=== PATIENT | male | born 1985 | race Caucasian/White ===

== ENCOUNTER 2020-08-20 14:48 | Emergency (ER) | payer MEDICARE, MEDICAID, SELFPAY ==
[2020-08-20 14:50] VITALS: BP 150/86; PULSE 107; RESP 19; TEMP 36.6; O2SAT 100; BMI 20.3
--- NOTE | 2020-08-20 15:04 | HMH.EDGENADL ---
ED Disposition Clinical Impression: Cutaneous abscess Qualifiers: Site of cutaneous abscess: extremity Site of cutaneous abscess of extremity: axilla Laterality: right Qualified Code(s): L02.411 - Cutaneous abscess of right axilla Disposition: Home, Self-Care Condition on Discharge: Good Instructions: DI for Skin Abscess, DI for Incision and Drainage of a Skin Abscess Additional Instructions: Bactrim as prescribed. Ibuprofen as needed for pain. Additional instructions for ABSCESS: Day one and two: Remove the bandage and shower the area, leaving the packing in place. Gently blot dry. Apply a bandage. Day three: Follow-up with primary care physician, clinic, or Urgent Treatment Center for packing removal and culture results. [facility] urgent treatment center is open 9 AM to 9 PM 7 days a week. Return to the emergency department if increasing pain, swelling, redness, red streaks or fever greater than 101 degrees. Prescriptions: Ibuprofen [Ibuprofen 800mg Tab] 800 mg PO Q8HP PRN #15 tab PRN Reason: Moderate Pain Transmission Status: Pending to [facility] # [id number] Sulfamethoxazole/Trimethoprim [Bactrim DS tablet] 1 each PO BID #20 tab Transmission Status: Pending to [facility] # [id number] Referrals: Ced Ocasio [Primary Care Provider] - - Critical Care Critical Care Time: No Attestation: On , the high probability of a clinically significant, sudden or life threatening deterioration of the following system(s) required my full and direct attention, intervention and personal management. The time I documented below is in addition to time spent performing reported procedures but includes the following listed in this critical care notation. Medical Decision Making - Saad Inquiry Pt receiving controlled substance: No Vital Signs: 08/20/20 14:50 Temperature 97.8 F Temperature Source Oral Pulse Rate [Left Radial] 107 H Respiratory Rate 19 Blood Pressure [Right Arm] 150/86 H Blood Pressure Mean [Right Arm] 107 Blood Pressure Source [Right Arm] Automatic Cuff Blood Pressure Position [Right Arm] Sitting 02 Sat by Pulse Oximetry 100 Oxygen Delivery Method Room Air Orders (Tests/Meds): ED MEDICATIONS Discontinued Medications Generic Name Dose Route Start Last Admin Trade Name Freq PRN Reason Stop Dose Admin Lidocaine/Epinephrine 10 ml 08/20/20 15:07 08/20/20 15:10 Lidocaine 2% W/Epi 1:100,000 20ml Vial IJ 08/20/20 15:08 1 mg ONCE ONE Administration ORDERS Category Date Time Status Wound Culture and Gram Stain Stat Micro 08/20/20 15:07 Ordered General Adult HPI - General Chief complaint: Skin/Abscess/Foreign Body Stated complaint: Possible boil under R arm Time Seen by Provider: 08/20/20 15:04 Mode of Arrival: Ambulatory Limitations: No Limitations Description of Symptoms (Recalled from ER Triage Doc. by RN): c/o boil like place under his right underarm that started swelling about 3 days ago. Area has become more sore and tender today. He feels that it is ready to bust - History of Present Illness HPI narrative: Possible boil in the right axilla for about 3 days. No drainage noted. No prior history of abscesses, no exposures known. No fever. - Related Data Previous Rx's Medication Instructions Recorded Ibuprofen [Ibuprofen 800mg Tab] 800 mg PO Q8HP PRN #15 tab 08/20/20 Sulfamethoxazole/Trimethoprim 1 each PO BID #20 tab 08/20/20 [Bactrim DS tablet] Allergies Allergy/AdvReac Type Severity Reaction Status Date / Time No Known Allergies Allergy Verified 08/20/20 15:04 [facility] History - Hepatitis A Screen Drug use history?: Yes High risk sexual behaviors?: No History of sexually transmitted infection?: No Currently employed?: No Childcare worker?: No Do you have indoor plumbing?: Yes Do you have electricity?: Yes Attestation statement:: This patient has been screened for Hepatitis A risk factors. I have reviewed the
[2020-08-20 15:36] VITALS: BP 135/70; PULSE 100; RESP 20; TEMP 36.6; O2SAT 100
== END 2020-08-20 15:40 | disposition home or self-care (01) ==
PROVIDERS: Emergency Provider Emergency Medicine; PCP Pediatrics
DX: L02.411 Cutaneous abscess of right axilla (principal)
CPT/HCPCS: 10060; 87070; 87077; 87186; 87205; 99283

== ENCOUNTER 2024-03-26 23:54 | Emergency (ER) | payer BC, SELFPAY ==
[2024-03-26 23:56] VITALS: BP 130/95; PULSE 71; RESP 15; TEMP 36.9; O2SAT 98; BMI 24.4
--- NOTE | 2024-03-27 00:18 | HMH.EDGENADL ---
Discharge Plan Disposition Patient Disposition: Home, Self-Care Condition: Good Prescriptions Prescriptions: New amoxicillin-pot clavulanate 875-125 mg tablet 1 tab PO BID 7 Days Qty: 14 0RF No Action ibuprofen 800 MG tablet 800 mg PO Q8HP PRN (Reason: Moderate Pain) Qty: 15 0RF sulfamethoxazole-trimethoprim 1 EACH tablet 1 each PO BID Qty: 20 0RF Referrals Follow up/Referrals: Provider,Referral, MD [Primary Care Provider] - See instructions Activity Restrictions/Add. Instructions Additional Instructions/Restrictions: You were evaluated in the ER. You are appropriate for discharge at this time. Take the prescribed antibiotics as directed, do not skip doses, do not stop taking them early. Call your dentist to make an appointment immediately to have your bad teeth removed in order to eliminate the infection. Return to the ER with any new or worsening symptoms including but not limited to fevers, difficulty opening the mouth, difficulty swallowing, or pain under the jaw. Clinical Impressions Clinical Impression: Dental infection Discharge ED Provider: Ratna Ruby Adult HPI General Chief complaint: Dental/Oral Stated complaint: absess tooth, swollen jaw Time Seen by Provider: 03/27/24 00:02 Mode of Arrival: Ambulatory Source of Information: Patient Limitations: No Limitations Description of Symptoms (Recalled from ER Triage Doc. by RN): patient ambualtory to ED with complaints of left lower jaw abscess with increased swelling today. He reports that he has seen an emergency dentist for current issue and was placed on abx. He had an appointment to get tooth removed at same place but was unable to keep appt . Denies fever, or difficulty swallowing History of Present Illness HPI narrative: 39 presents to the ER with concerns of left jaw swelling. Reportedly he saw an emergency dentist for this issue and was placed on amoxicillin. He had appointment to have the tooth extracted but was unable to make that appointment. He has been off antibiotics for more than a week and is having increasing swelling. He states he does not have significant pain, he denies fever, difficulty breathing, difficulty swallowing. No other daily medications, no known drug allergies. Related Data Previous Rx's Medication Instructions Recorded ibuprofen 800 mg tablet 800 mg PO Q8HP PRN Moderate Pain 08/20/20 #15 tabs sulfamethoxazole 800 1 each PO BID #20 tabs 08/20/20 mg-trimethoprim 160 mg tablet amoxicillin 875 mg-potassium 1 tab PO BID 7 days #14 tabs 03/27/24 clavulanate 125 mg tablet Allergies Allergy/AdvReac Type Severity Reaction Status Date / Time No Known Allergies Allergy Verified 08/20/20 15:04 [facility] Disclaimer: The information contained in this section may have been updated after the patient was seen, as this information can be updated by other users. Social History Smoking Status: Current every day smoker tobacco type: cigarettes packs per day: 1 alcohol intake: former substance use type: former substance user, heroin, opiates and methamphetamine current occupational status: unemployed Travel in the last 8 weeks: None ROS Obtained: Yes All systems reviewed & no additional complaints except as documented Constitutional Constitutional: Denies chills, Denies fever(s), Denies headache(s) and Denies weakness Eyes Eyes: Denies change in vision ENT Ears, Nose, Mouth, and Throat: Reports dental pain, Denies dizziness, Denies headache(s), Denies nasal congestion, Denies sore throat, Denies throat swelling and Reports other (Facial swelling) Cardiovascular Cardiovascular: Denies chest pain, Denies dyspnea and Denies leg edema Respiratory Respiratory: Denies cough and Denies dyspnea Gastrointestinal Gastrointestingal: Denies constipation, diarrhea, nausea or vomiting Genitourinary Male Genitourinary: Denies difficulty urinating Musculoskeletal Musculoskeletal: Denies arthralgias, Denies myalgias, Denies numbness and Denies tingling Integumentary/Breasts Skin/Breast: Denies change in pigmentation Neurologic Neurologic: Denies dizziness, Denies headache(s), Denies numbness, Denies tingling and Denies weakness Allergic/Immunologic Allergic/Immunologic: Denies throat swelling Physical Exam General General appearance: alert and in no apparent distress Head Head exam: atraumatic and normocephalic Eye Eye exam: Present PERRL and EOMI ENT ENT exam: Present mucous membranes moist Expanded ENT Exam Mouth exam: Present tongue normal; Absent trismus Teeth exam: Present dental caries, fractured tooth # and other (Multiple dental caries, fractured teeth #18, 19, 20, swelling along the gingiva and cheek along the same teeth, no obvious abscess) Comment: No submandibular swelling, no trismus, no tenderness in the submandibular space, no elevation of the tongue Neck Neck exam: Present normal inspection and full ROM Chest Chest inspection: Present symmetric chest wall rise Respiratory Respiratory exam: Absent respiratory distress or stridor Cardiovascular Cardiovascular exam: Present regular rate and normal rhythm Extremities Exam Extremities exam: Present full ROM Neurological Exam Neurological exam: Present alert and oriented X3; Absent motor sensory deficit Psychiatric Psychiatric exam: Present normal affect and normal mood Skin Skin exam: Present warm and dry Medical Decision Making Saad Inquiry Pt receiving controlled substance: No Vital Signs: 03/26/24 23:56 03/27/24 00:34 03/27/24 00:35 Temperature 98.5 F 98.4 F 98.5 F Temperature Source Oral Oral Pulse Rate 72 85 Pulse Rate [Right] 71 Respiratory Rate 15 16 20 Blood Pressure 134/92 H 148/76 H Blood Pressure [Right Arm] 130/95 H Blood Pressure Mean [Right Arm] 106 Blood Pressure Source Automatic Cuff Blood Pressure Source [Right Arm] Automatic Cuff Blood Pressure Position Sitting Blood Pressure Position [Right Arm] Sitting 02 Sat by Pulse Oximetry 98 Oxygen Delivery Method Room Air Room Air Room Air Orders (Tests/Meds): ED MEDICATIONS Discontinued Medications Generic Name Dose Route Start Last Admin Trade Name Freq PRN Reason Stop Dose Admin Amoxicillin/Clavulanate Potassium 1 each 03/27/24 00:17 03/27/24 00:21 Amoxicillin/Clavulanate Potassium 875/125mg Tablet PO 03/27/24 00:18 1 each ONCE ONE Administration Medical Decision Narrative: In summary, 39-year-old male presents to the ER with concerns of left-sided facial swelling in the setting of recent dental infection. Differential diagnosis includes but is not limited to dental caries, gingivitis, dental abscess, cellulitis, Khanh's angina. On initial evaluation patient is hemodynamically stable, afebrile, he has significant dental disease as well as swelling along the left mandible and left mandibular molars which are fractured. He does not have obvious abscess that would be amenable to drainage. He does not have any trismus, submandibular swelling, difficulty tolerating secretions, or findings of cellulitis in the submandibular space. No findings consistent with Khanh's angina. I do not believe he requires acute intervention at this time. He will be prescribed Augmentin since he recently completed a course of amoxicillin. 1 dose of Augmentin was administered in the ER. Patient was given instructions on symptomatic management, follow up instructions, and return precautions for the emergency department. Patient indicated understanding and was discharged in stable condition. Critical Care Critical Care Time Critical Care Time: No
[2024-03-27] MEDS: AMOXICILLIN/CLAVULANATE POTASSIUM 875/125MG TABLET 1 EACH PO (00:21)
[2024-03-27 00:34] VITALS: BP 134/92; PULSE 72; RESP 16; TEMP 36.9; O2SAT 100
[2024-03-27 00:35] VITALS: BP 148/76; PULSE 85; RESP 20; TEMP 36.9; O2SAT 96
== END 2024-03-27 00:42 | disposition home or self-care (01) ==
LOC: ER 03-27 00:16
PROVIDERS: Emergency Provider Emergency Medicine
DX: K04.7 Periapical abscess without sinus (principal); R22.0 Localized swelling, mass and lump, head
CPT/HCPCS: 99283

== ENCOUNTER 2024-03-27 12:01 | Emergency (ER) | payer BC, SELFPAY ==
[2024-03-27 12:02] VITALS: BP 131/90; RESP 18; TEMP 36.9; O2SAT 99; BMI 24.4
--- NOTE | 2024-03-27 12:16 | ED_ITS ---
Discharge Plan Disposition Patient Disposition: Home, Self-Care Prescriptions Prescriptions: New amoxicillin-pot clavulanate 875-125 mg tablet 1 tab PO BID 7 Days Qty: 14 0RF Discontinued sulfamethoxazole-trimethoprim 1 EACH tablet 1 each PO BID Qty: 20 0RF amoxicillin-pot clavulanate 875-125 mg tablet 1 tab PO BID 7 Days Qty: 14 0RF No Action ibuprofen 800 MG tablet 800 mg PO Q8HP PRN (Reason: Moderate Pain) Qty: 15 0RF Referrals Follow up/Referrals: Provider,Referral, MD [Primary Care Provider] - See instructions Activity Restrictions/Add. Instructions Additional Instructions/Restrictions: Augmentin twice daily for 7 days. Call your family doctor to establish care for this visit to the emergency department and schedule follow-up within 48 hours to ensure improvement. If you have any worsening of your condition or any other concerning signs or symptoms, return to the emergency department or your primary care doctor for further evaluation. Clinical Impressions Clinical Impression: Abscess, periapical Discharge ED Provider: Ghanshyam Saxena General Adult HPI General Chief complaint: PAIN Stated complaint: Abcess in mouth got worse Time Seen by Provider: 03/27/24 12:04 History of Present Illness HPI narrative: 39-year-old male history of poor dentition presenting with left-sided facial swelling. He was seen in emergency department yesterday, 03/26, given Augmentin, has not picked up the Augmentin at this point. States that the swelling is getting worse. No trismus, difficulty or pain with range of motion of neck, difficulty or pain with swallowing, pain in general. It is mostly the swelling that he is worried about. Please note that above description of symptoms, in this electronic medical record under categorization of recalled from ER triage doctor by RN are reflective of an initial nursing assessment, however, is not reflective of my full history and physical exam that was personally taken and clarified. Consequentially, this preceding description of symptoms, which may include the patient's categorized chief complaint in the EMR, do not reflect my personal clinical impression, and the ultimate description of history of present illness and patient stated complaints should be deferred to this section of the note. Unless stated otherwise or congruent with this section of the note, additional signs, symptoms, or incongruence should be interpreted as inaccurate with my clinical impression. Related Data Previous Rx's Medication Instructions Recorded ibuprofen 800 mg tablet 800 mg PO Q8HP PRN Moderate Pain 08/20/20 #15 tabs amoxicillin 875 mg-potassium 1 tab PO BID 7 days #14 tabs 03/27/24 clavulanate 125 mg tablet Allergies Allergy/AdvReac Type Severity Reaction Status Date / Time No Known Allergies Allergy Verified 08/20/20 15:04 [facility] Disclaimer: The information contained in this section may have been updated after the patient was seen, as this information can be updated by other users. Social History Smoking Status: Current every day smoker tobacco type: cigarettes packs per day: 1 alcohol intake: former substance use type: former substance user, heroin, opiates and methamphetamine current occupational status: unemployed Travel in the last 8 weeks: None ROS Obtained: Yes All systems reviewed & no additional complaints except as documented Physical Exam General General appearance: alert and in no apparent distress Head Head exam: atraumatic and normocephalic Eye Eye exam: Present normal appearance, PERRL and EOMI ENT ENT exam: Present mucous membranes moist and other (Left-sided facial swelling. No drainable abscess on intraoral exam. No trismus, stridor, range of motion of neck difficulties or any other abnormalities) Neck Neck exam: Present normal inspection, full ROM and trachea midline Respiratory Respiratory exam: Absent respiratory distress, wheezes, stridor, accessory muscle use or prolonged expiratory phase Cardiovascular Cardiovascular exam: Present normal rhythm Abdominal Exam Abdominal exam: Present soft; Absent distention, tenderness, guarding, rebound or rigidity Extremities Exam Extremities exam: Absent edema Neurological Exam Neurological exam: Present alert, oriented X3, CN II-XII intact and normal gait; Absent motor sensory deficit Skin Skin exam: Present warm and dry; Absent diaphoresis or erythema Medical Decision Making Medical Records Medical records reviewed: Yes I reviewed the patient's medical records. Saad Inquiry Pt receiving controlled substance: No Saad was queried for this patient: No Vital Signs: 03/27/24 12:02 Temperature 98.5 F Temperature Source Oral Respiratory Rate 18 Blood Pressure [Right Arm] 131/90 Blood Pressure Mean [Right Arm] 103 Blood Pressure Source [Right Arm] Automatic Cuff 02 Sat by Pulse Oximetry 99 Oxygen Delivery Method Room Air Orders (Tests/Meds): ED MEDICATIONS Discontinued Medications Generic Name Dose Route Start Last Admin Trade Name Freq PRN Reason Stop Dose Admin Amoxicillin/Clavulanate Potassium 1 each 03/27/24 12:16 03/27/24 12:21 Amoxicillin/Clavulanate Potassium 875/125mg Tablet PO 03/27/24 12:17 1 each ONCE ONE Administration Medical Decision Narrative: 39-year-old male history of poor dentition presenting with left-sided facial swelling. He was seen in emergency department yesterday, 03/26, given Augmentin, has not picked up the Augmentin at this point. States that the swelling is getting worse. No trismus, difficulty or pain with range of motion of neck, difficulty or pain with swallowing, pain in general. It is mostly the swelling that he is worried about. On physical exam, patiet has left-sided facial swelling. No evidence of tonsillitis, exudate, pharyngeal erythema, uvular deviation, palatal swelling, trismus, angioedema, or other abnormal junaid pharyngeal findings. Patient given Augmentin, antibiotic was switched from pharmacy in [place] to pharmacy here at the hospital so he can just walk over and pick it up. He is agreeable to this plan. States that he has follow-up with a dentist today and he is going to go there straight after this visit, I feel he is appropriate for this. Because patient at baseline without signs or symptoms of clinical decompensation, deemed appropriate for discharge. Results were relayed to patient who voiced understanding and were agreeable to outpatient management and follow up. I discussed my clinical impression with patient and answered all questions. At this time, the evidence for any other entities in the differential is insufficient to warrant any further testing or ED observation. This was explained as well. Advisory was given that persistent or worsening symptoms require further evaluation. I confirmed the understanding of this discussion. Grounds Maintenance Manager disclaimer Much of this encounter note is an electronic womens volleyball coach spoken language to printed text. Electronic womens volleyball coach of the spoken language may permit errors. Although I have reviewed the note, some errors may still exist. Critical Care Critical Care Time Critical Care Time: No
[2024-03-27] MEDS: AMOXICILLIN/CLAVULANATE POTASSIUM 875/125MG TABLET 1 EACH PO (12:21)
[2024-03-27 12:37] VITALS: BP 131/90; PULSE 92; RESP 18; TEMP 36.9; O2SAT 98
== END 2024-03-27 12:42 | disposition home or self-care (01) ==
PROVIDERS: Emergency Provider Emergency Medicine
DX: K04.7 Periapical abscess without sinus (principal); R22.0 Localized swelling, mass and lump, head
CPT/HCPCS: 99283

== ENCOUNTER 2024-08-27 01:44 | Emergency (ER) | payer BC, SELFPAY ==
[2024-08-27 01:44] VITALS: BP 143/81; PULSE 119; RESP 20; TEMP 36.9; O2SAT 92; BMI 21.7
--- NOTE | 2024-08-27 01:45 | ECG_ITS ---
APPROVED REPORT Exam: Resting ECG HR:113 bpm ECG Measurements Heart Rate 113 AXES NJ 148 P 98 QRSd 106 QRS 100 QT 329 T 110 QTc 396 Conclusion SINUS TACHYCARDIA ARM LEADS REVERSED [INVERTED P AND QRS IN I] ABNORMAL RHYTHM ECG UNCONFIRMED REPORT Electronically signed by : CALEB MIKE, 08/27/2024 05:34:49
[2024-08-27 01:48] VITALS: PULSE 119
--- NOTE | 2024-08-27 01:55 | HMH.EDGENADL ---
Discharge Plan Disposition Patient Disposition: Home, Self-Care Prescriptions Prescriptions: New azithromycin 250 mg tablet See Rx Instructions .ROUTE .COMPLEX Qty: 6 0RF Rx Instructions: For 250 mg dose pack: take 500 mg today (day 1), then 250 mg for 4 days (days 2-5) amoxicillin-pot clavulanate 875-125 mg tablet 1 tab PO BID 7 Days Qty: 14 0RF Referrals Follow up/Referrals: Provider,Referral, MD [Primary Care Provider] - See instructions Activity Restrictions/Add. Instructions Additional Instructions/Restrictions: Please take antibiotics for treatment of pneumonia. You do not need to take the azithromycin today because we gave you a dose of it in the ER. Please start with your next dose tomorrow morning. You can take your first dose of Augmentin this afternoon. Please follow-up with your primary care provider. Please return to the emergency department if you develop any new or worsening symptoms or become concerned for your health, specifically if you become too short of breath. Clinical Impressions Clinical Impression: Pneumonia Qualifiers: Laterality: left Lung location: lower lobe of lung Print Language Print Language: Kitt[place] Discharge ED Provider: Mynor Haines General Adult HPI General Chief complaint: Chest Pain Stated complaint: Chest Pain Time Seen by Provider: 08/27/24 01:50 Mode of Arrival: Ambulatory Source of Information: Patient Limitations: No Limitations Description of Symptoms (Recalled from ER Triage Doc. by RN): pt reports chest pain that began yesterday that has just increasingly gotten worse tonight when he went to lay down. pt reports pain is worse with deep breaths. History of Present Illness HPI narrative: 39-year-old male without significant past medical history, 1 pack/day smoker presents for 2 to 3 days of cough congestion, chest pain starting last night. Reports pain is worse with deep breathing. Denies any cardiac history. Reports he is not sure that he had a fever at home but did feel warm. Related Data Previous Rx's ?Medication ?Instructions ?Recorded amoxicillin 875 mg-potassium 1 tab PO BID 7 days #14 tabs 08/27/24 clavulanate 125 mg tablet azithromycin 250 mg tablet See Rx Instructions PO .COMPLEX #6 08/27/24 tabs Allergies Allergy/AdvReac Type Severity Reaction Status Date / Time No Known Allergies Allergy Verified 08/20/20 15:04 [facility] Disclaimer: The information contained in this section may have been updated after the patient was seen, as this information can be updated by other users. Social History Smoking Status: Current every day smoker tobacco type: cigarettes packs per day: 1 alcohol intake: former substance use type: former substance user, heroin, opiates and methamphetamine current occupational status: unemployed Travel in the last 8 weeks: None Other Medical History Have you received the Flu Vaccine for this season: No Have you received the Pneumonia Vaccine: No ROS Obtained: Yes All systems reviewed & no additional complaints except as documented Physical Exam General General appearance: alert and in no apparent distress Head Head exam: atraumatic and normocephalic Eye Eye exam: Present normal appearance, PERRL and EOMI ENT ENT exam: Present normal oropharynx and normal external ear exam Neck Neck exam: Present normal inspection and full ROM Chest Chest inspection: Present normal inspection and symmetric chest wall rise; Absent tenderness Respiratory Respiratory exam: Present other (Left lower lobe rhonchi); Absent respiratory distress Cardiovascular Cardiovascular exam: Present normal rhythm and tachycardia Abdominal Exam Abdominal exam: Present soft; Absent distention, tenderness or guarding Extremities Exam Extremities exam: Present normal inspection; Absent edema or joint swelling Back Exam Back exam: Present normal inspection; Absent tenderness Neurological Exam Neurological exam: Present alert and oriented X3; Absent motor sensory deficit Psychiatric Psychiatric exam: Present normal affect and normal mood Skin Skin exam: Present warm, dry and normal color Lymphatic Lymphatic Findings: no adenopathy Medical Decision Making Medical Records Medical records reviewed: Yes I reviewed the patient's medical records. Screening: Per USPSTF and CDC recommendations, given the prevalence of disease in our region, it is our hospital?s policy to screen for HIV and viral Hepatitis for all patients aged 18 and over and those with ongoing risk factors. Saad Inquiry Pt receiving controlled substance: No Saad was queried for this patient: No Vital Signs: 08/27/24 01:44 08/27/24 01:48 08/27/24 02:14 Temperature 98.5 F Temperature Source Oral Pulse Rate 119 H 100 H Pulse Rate [Right] 119 H Respiratory Rate 20 18 Blood Pressure 121/72 Blood Pressure [Right Arm] 143/81 H Blood Pressure Mean [Right Arm] 101 02 Sat by Pulse Oximetry 92 L 94 L Oxygen Delivery Method Room Air 08/27/24 02:52 Temperature 98.5 F Temperature Source Pulse Rate 90 Pulse Rate [Right] Respiratory Rate 13 Blood Pressure 133/78 Blood Pressure [Right Arm] Blood Pressure Mean [Right Arm] 02 Sat by Pulse Oximetry Oxygen Delivery Method Room Air Lab Data Lab results reviewed: Yes I reviewed the patient's lab results. Lab Results 08/27/24 01:47: WBC 22.3 H*, RBC 4.85, Hgb 14.7, Hct 42.6, MCV 87.8, MCH 30.3, MCHC 34.5, RDW 13.0, Plt Count 404, MPV 7.2 L, Neut % (Auto) 77.3, Lymph % (Auto) 15.6, [place] % (Auto) 6.6, Eos % (Auto) 0.1, Baso % (Auto) 0.5, Neut # (Auto) 17.2 H, Lymph # (Auto) 3.5, [place] # (Auto) 1.5 H, Eos # (Auto) 0.0, Baso # (Auto) 0.1, Sodium 132 L, Potassium 3.4 L, Chloride 102, Carbon Dioxide 28, Anion Gap 5.4, BUN 12, Creatinine 0.80, Estimated Creat Clear 130, Estimated GFR 109, Est GFR ( Amer) 132, Glucose 113 H, Calcium 9.8, Total Bilirubin 1.0, AST 27, ALT 27, Alkaline Phosphatase 131 H, Troponin I < 0.01, Total Protein 7.8, Albumin 4.4, Globulin 3.4 H, Albumin/Globulin Ratio 1.3, HIV 1&2 Antibody Rapid Nonreactive 08/27/24 02:10: SARS-CoV-2 (PCR) Not detected, Influenza A Untype (PCR) Not detected, Influenza Type B (PCR) Not detected 08/27/24 01:47 08/27/24 01:47 Orders (Tests/Meds): ED MEDICATIONS Discontinued Medications Generic Name Dose Route Start Last Admin Trade Name Freq PRN Reason Stop Dose Admin Acetaminophen 1,000 mg 08/27/24 02:00 08/27/24 02:07 Acetaminophen 500mg Tab PO 08/27/24 02:01 1,000 mg ONCE ONE Administration Amoxicillin/Clavulanate Potassium 1 each 08/27/24 02:23 08/27/24 02:33 Amoxicillin/Clavulanate Potassium 875/125mg Tablet PO 08/27/24 02:24 1 each ONCE ONE Administration Azithromycin 500 mg 08/27/24 02:23 08/27/24 02:33 Azithromycin 250mg Tablet PO 08/27/24 02:24 500 mg ONCE ONE Administration Ketorolac Tromethamine 30 mg 08/27/24 02:00 08/27/24 02:07 Ketorolac 30mg/Ml Vial IV 08/27/24 02:01 30 mg ONCE ONE Administration ORDERS Category Date Time Status CXR 2 view (NOT portable) [XR chest 2V] Stat Exams 08/27/24 02:00 Taken CBC w/Auto Diff [Complete Blood Count Auto Diff] Stat Lab 08/27/24 01:47 Results CMP [Comprehensive Metabolic Panel] Stat Lab 08/27/24 01:47 Completed HIV (1&2) Antibody Rapid Stat Lab 08/27/24 01:47 Completed Hep C Ab with Reflex to RNA Stat Lab 08/27/24 01:47 Received Rapid PCR Covid and Flu A/B Stat Lab 08/27/24 02:10 Completed Trop I [Troponin I] Stat Lab 08/27/24 01:47 Completed Troponin I Q3H Lab 08/27/24 05:15 Ordered Troponin I Q3H Lab 08/27/24 08:15 Ordered ECG Data Tracing #1: I reviewed this ECG and interpreted as documented below: Sinus tachycardia with ventricular rate of 113, no concerning ST changes, no evidence of arrhythmia. ECG initial impression date: 08/27/24 ECG initial impression time: 01:46 Medical Decision Narrative: 39-year-old male, 1 pack/day smoker, presents for multiple days of cough and respiratory symptoms, 1 day of chest pain. History was obtained via interactive discussion with patient. On arrival, patient is afebrile, mildly tachycardic, sats in the low 90s, pain with deep inspiration, moving all extremities spontaneously. Full physical exam performed and significant for abnormal left lower lobe breath sounds. Differential includes but is not limited to pneumonia, URI, less likely to be cardiac such as ACS PE etc. Patient was given Tylenol and Toradol for symptomatic management and correction of underlying abnormalities. Workup initiated including CBC CMP 2 view chest x-ray EKG troponin COVID flu. Aspirin was not given as this was not felt likely to be ACS.. On re-evaluation, patient [remains afebrile, HD stable.] Sats improved to the mid 90s, heart rate improved to the mid 90s. Laboratory workup independently interpreted by me and significant for leukocytosis white count of 22, minimal electrolyte derangements with mild hypokalemia and hyponatremia, troponin negative.. Imaging independently interpreted by me and significant for left lower lobe opacities concerning for pneumonia. See radiology read for full review of final results. EKG independently interpreted by me and significant for sinus tachycardia. Admission for IV antibiotic therapy, repeat troponin was considered, but deemed unnecessary due to history and exam, I think patient is appropriate for trial of outpatient antibiotic therapy.. Given patient history, exam and workup, patient's presentation most likely represents acute left lower lobe pneumonia. Patient was initiated on Augmentin and azithromycin in the ER and discharged with prescription for same. He was given return precautions for worsening symptoms. Procedures Risk/Benefits of Procedure(s) Were Explained: Yes Critical Care Critical Care Time Critical Care Time: No
--- NOTE | 2024-08-27 02:00 | XR_ITS ---
PROCEDURE INFORMATION: Exam: XR Chest Exam date and time: 08/27/2024 2:06 AM Age: 39 years old Clinical indication: Shortness of breath; Additional info: SOA, left cp/abnormal breath sounds TECHNIQUE: Imaging protocol: Radiologic exam of the chest. Views: 2 views. COMPARISON: No relevant prior studies available. FINDINGS: Lungs: Peribronchial interstitial infiltrates are present bilaterally. No airspace disease. Pleural spaces: No pleural effusions. Heart/Mediastinum: Unremarkable. No cardiomegaly. Bones/joints: Osseous structures are appropriate for age. IMPRESSION: Airways disease or infectious bronchitis. No acute airspace pneumonia.
[2024-08-27 02:07] LABS: Basophils # 0.1 K/mm3 (0-0.2); Basophils % 0.5 % (0.1-2.0); Eosinophils % 0.1 % (0.1-12.0); Hematocrit 42.6 % (42.0-52.0); Hemoglobin 14.7 g/dL (14.1-18.0); Lymphocytes # 3.5 K/mm3 (0.7-4.5); Lymphocytes % 15.6 % (10-50); Mean Corpuscular HGB Conc 34.5 g/dL (31.8-35.4); Mean Corpuscular Hemoglobin 30.3 pg (27.0-31.2); Mean Corpuscular Volume 87.8 fl (80-94); Mean Platelet Volume 7.2 fl (7.4-10.4); Monocytes # 1.5 K/mm3 (0.1-1.0); Monocytes % 6.6 % (1.7-9.3); Neutrophils # 17.2 K/mm3 (1.8-7.8); Neutrophils % 77.3 % (37.0-80.0); Platelet Count 404 K/mm3 (142-424); Red Blood Count 4.85 M/mm3 (4.60-6.20); White Blood Count 22.3 K/mm3 (4.8-10.8)
[2024-08-27] MEDS: ACETAMINOPHEN 500MG TAB 1000 MG PO (02:07)
[2024-08-27] MEDS: KETOROLAC 30MG/ML VIAL 30 MG IV (02:07)
[2024-08-27 02:09] LABS: MANUAL DIFFERENTIAL MANUAL DIFFERENTIAL (MANUAL DIFF)
[2024-08-27 02:13] LABS: Alanine Aminotransferase 27 U/L (12-78); Albumin Level 4.4 g/dl (3.5-5.0); Albumin/Globulin Ratio 1.3 (1.1-1.8); Alkaline Phosphatase 131 U/L (38-126); Anion Gap 5.4 mEq/L (5-15); Aspartate Amino Transferase 27 U/L (17-59); Blood Urea Nitrogen 12 mg/dl (9-20); Calcium 9.8 mg/dl (8.4-10.2); Carbon Dioxide 28 mmol/L (22.0-30.0); Chloride 102 mmol/L (98-107); Creatinine Clearance Estimated 130 mL/min (50-200); Estimated Glomerular Filt Rate 109 ml/min (>60); GFR (African American) 132 ML/MIN (>60); Globulin 3.4 g/dL (1.3-3.2); Glucose 113 mg/dl (74-100); Potassium 3.4 mmoL/L (3.5-5.1); Sodium 132 mmol/L (136-145); Total Protein,Serum 7.8 g/dl (6.3-8.2)
[2024-08-27 02:14] VITALS: BP 121/72; PULSE 100; RESP 18; O2SAT 94
[2024-08-27 02:15] LABS: Coronavirus 19, PCR Not Detected (NotDetected); Influenza A, PCR Not Detected (NotDetected); Influenza B, PCR Not Detected (NotDetected)
[2024-08-27 02:26] LABS: Troponin I < 0.01 ng/ml (0.00-0.034)
[2024-08-27] MEDS: AMOXICILLIN/CLAVULANATE POTASSIUM 875/125MG TABLET 1 EACH PO (02:33)
[2024-08-27] MEDS: AZITHROMYCIN 250MG TABLET 500 MG PO (02:33)
[2024-08-27 02:47] LABS: HIV (1&2) Antibody Rapid NONREACTIVE (NONREACTIVE)
[2024-08-27 02:52] VITALS: BP 133/78; PULSE 90; RESP 13; TEMP 36.9; O2SAT 94
[2024-08-27 02:55] LABS: Lymphocytes % 15 % (10-50); Monocytes % 5 % (2-9); Neutrophils % 80 % (42-76); Platelet Estimate Normal; RBC Morphology Normal; Total Cells Counted 100
== END 2024-08-27 02:55 | disposition home or self-care (01) ==
PROVIDERS: Emergency Provider Emergency Medicine
DX: J18.9 Pneumonia, unspecified organism (principal)
CPT/HCPCS: 71046; 80053; 84484; 85007; 85025; 87389; 87636; 93005; 96374; 99284; J1885